=== PATIENT | male | born 1960 ===

== ENCOUNTER → 2023-05-24 | Outpatient (CLI) | payer OTHER ==
[~2023-05-24] MED LIST: IBUP800 PO; META800 PO; OXYACE5T PO
== END ==
LOC: LAB SHORT 08:35
DX: L08.89 Other specified local infections of the skin and subcutaneous tissue (principal); L57.8 Other skin changes due to chronic exposure to nonionizing radiation; L81.9 Disorder of pigmentation, unspecified
CPT/HCPCS: 88305